=== PATIENT | female | born 1980 ===

== ENCOUNTER 2024-08-19 18:51 | Observation (INO) ==
[2024-08-19 19:49] LABS: BILIRUBIN,URINE NEGATIVE (NEGATIVE); GLUCOSE, URINE (UA) NEGATIVE (NEGATIVE); KETONES,URINE (UA) NEGATIVE (NEGATIVE); LEUKOCYTE ESTERASE, URINE NEGATIVE (NEGATIVE); NITRITE,URINE NEGATIVE (NEGATIVE); OCCULT BLOOD,URINE NEGATIVE (NEGATIVE); PROTEIN,URINE NEGATIVE (NEGATIVE); UROBILINOGEN,URINE 2 E.U./dL (NORMAL)
--- NOTE | 2024-08-19 19:58 | ED Physician Documentation ---
History of Present Illness Stated complaint Stated Complaint: LOWER BACK PX/ABD PX Chief complaint Chief Complaint: Back Pain History obtained from History obtained from: Patient Additonal information Additional information: This is a previous healthy 43-year-old woman who has superheavy periods. For the last few years she says, instead of using pads for her 7-day menstrual cycle, she actually use incontinence briefs because the bleeding is so heavy and has clots. She went to the clinic today for cough and cold and some backache and had a chest x-ray showing a viral pattern but also she was noted to be ye llow and was sent for labs which were notable for a hemoglobin of 4 with microcytic indices and referred here for further evaluation and treatment. Interestingly, despite the above she does not feel weak or dizzy, but she does have a lot of fatigue. Meds/Allgy Home Medications Ambulatory Orders Medication Instructions Recorded Confirmed No Known Home Medications 08/19/24 08/19/24 Allergies Allergies Allergy/AdvReac Type Severity Reaction Status Date / Time No Known Drug Allergies Allergy Verified 08/19/24 19:13 [facility] Surgical History Surgical History S/P tubal ligation Social History Social History Smoking Status: Never smoker Relationship: Do you feel safe in your home environment?: Yes Suffered physical, verbal, emotional, or financial abuse?: No Exam Constitutional normal general appearance This is a pale 43-year-old woman sitting in bed in no distress. I offered an science interpreter, but she preferred to have her daughter interpret. Respiratory breath sounds equal bilaterally and normal respiratory effort Cardiovascular normal heart rate noted, regular rhythm noted and no murmur Gastrointestinal abdomen soft to palpation and nontender to palpation Psychiatry oriented x3 Results Vitals Vitals: Vital Signs - 24 hr 08/19/24 19:04 08/19/24 19:46 Temperature 36.9 C Temperature Source Skin Pulse Rate 99 Respiratory Rate 16 17 Blood Pressure 139/59 H O2 Saturation 100 O2 Source Room air Room air Pain Intensity 6 4 Oxygen O2 Source Room air Labs Labs: Laboratory Tests 08/19/24 08/19/24 19:10 19:30 Iron 19 L TIBC 550 H % Saturation 3 L Transferrin 393 H Urine Color YELLOW Urine Clarity CLEAR Urine pH 8.0 H Ur Specific [place] 1.015 Urine Protein NEGATIVE Urine Glucose (UA) NEGATIVE Urine Ketones NEGATIVE Urine Occult Blood NEGATIVE Urine Nitrite NEGATIVE Urine Bilirubin NEGATIVE Urine Urobilinogen 2 H Ur Leukocyte Esterase NEGATIVE Ur Microscopic Review NOT INDICATED Urine Culture Comments NOT INDICATED Urine HCG, Qual NEGATIVE Crossmatch IS Only See Detail PD Medical Decision Making ED course ED course: This is a 43-year-old woman who presents from the clinic with severe microcytic anemia, likely due to heavy menses. In addition to the labs done in the clinic I have added on a iron studies crossmatched her for blood, and ordered a pelvic ultrasound. She has had a tubal ligation in the past as well as a and had her gallbladder out. Spoke with the hospitalist LORRAINE for admission at 7:55 PM given the likely prolonged length of stay. They plan to consult Satellite Dish Technician after the ultrasound. The patient and family are counseled as to the diagnosis and need for admission. This document was made in part using voice recognition software, while efforts a re made to proofread this document, sound alike an grammatical errors may occur. Discharge Plan Discharge Patient Disposition: ED Place in Observation Condition: Stable Clinical Impression: Profound anemia Qualifiers: Anemia type: iron deficiency Iron deficiency anemia type: chronic blood loss Qualified Code(s): D50.0 - Iron deficiency anemia secondary to blood loss (chronic) Heavy menstrual bleeding Qualifiers: Menorrhagia type: with regular cycle Qualified Code(s): N92.0 - Excessive and frequent menstruation with regular cycle Interventions: ED Admission Assessment Last Done: 08/19/24 20:36
[2024-08-19 19:59] LABS: CLARITY,URINE CLEAR (CLEAR); HCG UR QUAL NEGATIVE
[2024-08-19 20:00] LABS: % IRON SATURATION 3 % (20-50); IRON 19 ug/dL (50-212); TOTAL IRON BINDING CAPACITY 550 ug/dL (250-450); TRANSFERRIN 393 mg/dL (203-362)
--- NOTE | 2024-08-19 20:19 | HISTORY & PHYSICAL EXAMINATION ---
Chief Complaint Chief Complaint Chief Complaint: abdominal and lower back pain History of Present Illness History Obtained From Records Reviewed: [facility] visit today History obtained from: patient and family ( and daughter) History of Present Illness HPI Comment/Other: 43-year-old female who presents to the emergency department after having had labs drawn at urgent care. She was seen in our walk-in clinic today for cough that had been ongoing for several weeks. Provider noted that her skin was an odd color, suspected jaundice and got labs. Her CMP was within normal limits, however her hemoglobin was 4. She has very heavy menstrual periods her last 1 starting around the first of this month lasting about 7 to 8 days. For 3 days her bleeding is very heavy, so heavy that she has to wear incontinence pads, not menstrual pads. She states then she passes several big clots and the bleeding subsides after a total of about 7 days she does have some cramping and abdominal pain with her periods. She has not noticed any shortness of breath but he she has noted profound fatigue. She has been on the [place] for 7 to 8 years and lives with her daughter and her . 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 Previously she has been unemployed and has not had health insurance. She has a past surgical history of a tubal ligation. It is unknown if fibroids or uterine bleeding problems run in her family. She states that her mom at 73 years of age just had a hysterectomy in the last year. Her is her surrogate decision maker should she become unable to make her own medical decisions. Meds/Allgy Home Medications Ambulatory Orders Medication Instructions Recorded Confirmed No Known Home Medications 08/19/24 08/19/24 Allergies Allergies Allergy/AdvReac Type Severity Reaction Status Date / Time No Known Drug Allergies Allergy Verified 08/19/24 19:13 [facility] Surgical History Surgical History S/P tubal ligation Social History Social History Smoking Status: Never smoker Relationship: Do you feel safe in your home environment?: Yes Suffered physical, verbal, emotional, or financial abuse?: No POLST Patient has POLST: No Review of Systems Status of ROS: 10 or more systems reviewed and unremarkable except as noted in history and below Constitutional Reports: Fatigue; Denies: Weakness Ears, nose, mouth, and throat Denies: Ear pain, Nasal discharge or Throat pain Cardiovascular Denies: chest pain, palpitations or shortness of breath with exertion Respiratory Reports: Cough; Denies: Shortness of breath, Sputum production, Wheezing or Pleuritic pain Gastrointestinal Denies: Abdominal pain Genitourinary Reports: Painful menstruation, Vaginal bleeding and Change in menstrual flow (ongoing for at least one year. ) Integumentary/Breast Denies: Rash or Itching Neurological Denies: Headache Endocrine Reports: Fatigue Allergic/Immunologic Denies: Wheezing Prior Level of Functionality: independent adult Exam Constitutional normal general appearance slightly pale HENMT normocephalic Eyes PERRL and conjunctivae normal Neck/C-Spine visual inspection normal Lymph no lymphadenopathy noted Chest palpation of chest normal Respiratory breath sounds equal bilaterally and normal respiratory effort coughs with deep breathing Cardiovascular normal heart rate noted Gastrointestinal abdomen normal to inspection, abdomen soft to palpation and nontender to palpation Genitourinary no CVA tenderness Extremities normal to inspection Neurology filler room attendant II-XII intact, gait normal and GCS 15 Psychiatry mental status grossly normal, oriented x3 and cooperative Skin skin color normal Conclusion/Plan Problem List (1) Metrorrhagia: Plan: Ongoing for at least a year. No clear family history of fibroids. Patient has had fatigue, she is status post tubal ligation years ago. She denies any previous RAILROAD CAR CLEANER workup. Unknown when her last Pap smear was. We will obtain pelvic ultrasound to observe for fibroids and check the thickness of the uterine lining. Will strongly consider consultation with RAILROAD CAR CLEANER once this is obtained. Patient was discussed with Dr. Arriaga and decision was made to admit her to observation status due to the fact that she will need multiple units of blood transfusions and probably further workup and possible consultation for the etiology of the severe anemia. (2) Profound anemia: Plan: Hemoglobin of 4.3 today. Will transfuse with a goal hemoglobin of 7. Patient has 3 units of packed red blood cells ordered. I will check CBC in the AM. Iron studies show that she has low iron stores. She will be getting packed cells likely for most of the night. My plan is to also order Ferrlecit x 1 dose in the morning and consider discharging her to home on p.o. iron. She does not have a primary care provider. She has not had health insurance in recent years. She just started a new job and so likely can get her set up with primary care in the community and any additional care she might need. Qualifiers: Anemia type: iron deficiency Iron deficiency anemia type: chronic blood loss Qualified Code(s): D50.0 - Iron deficiency anemia secondary to blood loss (chronic) (3) Bronchitis: Plan: Has been coughing and feeling poorly for several weeks. She is not hypoxic. Her chest x-ray does show peribronchial cuffing suggestive of infectious or inflammatory bronchitis. I will start her on Mucinex. I will start her on steroids. Plan I have spent 80 minutes in the care of this patient today. This includes time [id number], review and ordering of diagnostic imaging and laboratory studie s and consultation with other providers.. Monitoring the patient's signs symptoms, evaluation of medication effectiveness and patient's response to treatment. Lab Results Lab results reviewed: Yes Diagnostic Imaging Results Diagnostic Imaging Results: positive Final report reviewed Core Measures Anticipated LOS I expect patient to be DC'd or transferred within 96 hours.: Yes Issues Hospital Issues and Management Plan: Profound anemia and metrorrhagia with comorbidity of bronchitis. She will be transfused the etiology of her anemia will be ascertained, and appropriate consultations will be made. DVT/VTE - Prophylaxis VTE/DVT Device ordered at admit?: Yes VTE/DVT Prophylaxis med ordered at admit?: Yes
[2024-08-19] MEDS: DEXAMETHASONE 10 MG/ML VIAL PO STA (20:25)
[2024-08-19] MEDS ORDERED: SODIUM CHLORIDE FLUSH 0.9% 10 ML SYRINGE IVP PRN (20:46)
[2024-08-19] MEDS ORDERED: ONDANSETRON ODT 4 MG TABLET TL PRN (20:46)
[2024-08-19] MEDS: guaiFENesin 600 MG TABLET PO SCH (22:06)
[2024-08-19] MEDS: ACETAMINOPHEN 325 MG TABLET PO ONE (22:06)
[2024-08-19] MEDS: diphenhydrAMINE 25 MG CAPSULE PO ONE (22:06)
[2024-08-19] MEDS: CHERRY SYRUP 10 ML UDC PO ONE (22:08)
[2024-08-19] MEDS: HEPARIN 5,000 UNIT/ML VIAL SUBQ SCH (22:12)
--- NOTE | 2024-08-19 22:50 | Ultrasound Report ---
PROCEDURE: US Pelvic w/TV+Doppler Ltd INDICATIONS: heavy anemia TECHNIQUE: Real-time scanning was performed of the pelvic organs, with image documentation. Additional endovagi nal scanning was necessary due to incomplete visualization of the adnexal and endometrial structures by transabdominal scanning. Doppler interrogation was performed of the ovaries bilaterally. COMPARISON: None. FINDINGS: Uterus: Uterus is anteverted and enlarged at 11.0 x 6.3 x 7.9 cm. The myometrium is heterogeneous. The endometrium measures 9 mm in combined thickness. Multiple uterine fibroids, with the 3 largest as follows: Right lateral subserosal fibroid measuring 3.7 x 3.8 x 3.7 cm. Right lateral inferior subserosal fibroid measuring 3.3 x 2.9 x 3.1 cm Midline anterior submucosal fibroid measures 2.1 x 1.5 x 1.8 cm. Ovaries: The right ovary measures 3.6 x 3.1 x 3.4 cm, with a calculated ovarian volume of 19.6 cc. The left ovary measures 3.0 x 2.2 x 2.9 cm, with a calculated ovarian volume of 9.6 cc. Simple right ovarian cyst measures up to 2.6 cm. Appropriate blood flow to the ovaries with Doppler interrogation. Less than 12 follicles can be seen in each ovary. No adnexal masses are seen. No cystic lesions m easuring greater than 3 cm. Other: No pathologic free abdominal or pelvic fluid. IMPRESSION: Enlarged fibroid uterus. A 2.1 cm fibroid has a submucosal component. Reviewed by: Dennis العلي MD on 08/19/2024 10:48 PM PST Approved by: Dennis العلي MD on 08/19/2024 10:48 PM PST Station ID: [id number]
[2024-08-20] MEDS: SODIUM CHLORIDE FLUSH 0.9% 10 ML SYRINGE IVP SCH (02:21)
--- NOTE | 2024-08-20 02:46 | PROVIDER PROGRESS NOTE ---
Reinforced Ironworker Note Reinforced Ironworker Note Reinforced Ironworker Note: per nurse "Pt admitted for Severe Anemia. Heparin was ordered on admission. Pt is ambulating to the Bathroom to void and has SCD's ordered, currently they are off as they made pt feel hot. Should we be giving Heparin to a pt with a critically low Hgb? Pt also has a frequent cough, can we get cough medication ordered? Thank You" heparin stopped
[2024-08-20 05:35] LABS: BASOPHILS % (AUTO) 0.8 %; EOSINOPHILS % (AUTO) 0.2 %; HCT - HEMATOCRIT 24.3 % (37.0-47.0); LYMPHOCYTES # (AUTO) 0.6 10^3/uL (1.5-3.5); LYMPHOCYTES % (AUTO) 12.4 %; MEAN CORPUSCULAR HEMOGLOBIN 19.4 pg (27.0-31.0); MEAN CORPUSCULAR HGB CONC 28.4 g/dL (32.0-36.0); MEAN CORPUSCULAR VOLUME 68.3 fL (81.0-99.0); MEAN PLATELET VOLUME 8.9 fL (7.9-10.8); MONOCYTES # (AUTO) 0.1 10^3/uL (0.0-1.0); MONOCYTES % (AUTO) 1.5 %; NEUTROPHILS # (AUTO) 4.3 10^3/uL (1.5-6.6); NRBC ABSOLUTE COUNT (AUTO) 0.03 x10^3/uL; NUCLEATED RED BLOOD CELLS AUTO 0.6 /100WBC; PLT - PLATELET COUNT 339 10^3/uL (130-450); RED BLOOD COUNT 3.56 10^6/uL (4.20-5.40); RED CELL DISTRIBUTION WIDTH 28.8 % (12.0-15.0); WHITE BLOOD COUNT 5.2 x10^3/uL (4.8-10.8)
[2024-08-20 05:40] LABS: HGB - HEMOGLOBIN 6.9 g/dL (12.0-16.0); SLIDE REVIEW? Indicated
[2024-08-20 05:47] LABS: CALCIUM 8.9 mg/dL (8.5-10.3); CREATININE 0.4 mg/dL (0.6-1.3); POTASSIUM 3.6 mmol/L (3.5-4.5)
[2024-08-20 06:28] LABS: PLATELET ESTIMATE, MANUAL NORMAL (130-450,000) (NORMAL); PLATELET MORPHOLOGY NORMAL APPEARANCE (NORMAL)
[2024-08-20 08:24] VITALS: O2SAT 96
--- NOTE | 2024-08-20 13:38 | PHARMACY PROGRESS NOTE ---
Best Possible Medication History Admit Date and Time: 08/19/242014 Processed by: Pharmacy Medications reviewed in ED?: No Medication History completed: Yes Patient Interview: Completed Secondary Source(s): Insurance records [facility] Statement: daycare director interview, pt states takes no home medications. As the person ultimately responsible for medication therapy, providers are able to order a medication from an existing home medication list in [facility] via the "Reconcile Routine" prior to Confirmation of that medication by patient support partner. Such practice is discouraged except when the physician, in their clinical judgment, deems that a medical need exists for a medication without regard to previous use.
--- NOTE | 2024-08-20 14:59 | Discharge Summary ---
"Discharge Summary Admit Date: 08/19/24 Discharge Date: 08/20/24 Discharging Provider: Margie Akers PA-C Primary Care Provider: none, patient finding one Code Status: Attempt Resuscitation DIAGNOSES Discharge Diagnoses with Status of Each Condition: 1. Profound anemia, transfuse to hemoglobin of 8. 2. metrorrhagia, ongoing with fibroids seen on pelvic ultrasound. Referred to [facility] with upcoming appointment within the week 3. Acute bronchitis treated with steroids, improved HPI History of Present Illness: 43-year-old female who presents to the emergency department after having had labs drawn at urgent care. She was seen in our walk-in clinic today for cough that had been ongoing for several weeks. Provider noted that her skin was an odd color, suspected jaundice and got labs. Her CMP was within normal limits, however her hemoglobin was 4. She has very heavy menstrual periods her last 1 starting around the first of this month lasting about 7 to 8 days. For 3 days her bleeding is very heavy, so heavy that she has to wear incontinence pads, not menstrual pads. She states then she passes several big clots and the bleeding subsides after a total of about 7 days she does have some cramping and abdominal pain with her periods. She has not noticed any shortness of breath but he she has noted profound fatigue. She has been on the [place] for 7 to 8 years and lives with her daughter and her . 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 Previously she has been unemployed and has not had health insurance. She has a past surgical history of a tubal ligation. It is unknown if fibroids or uterine bleeding problems run in her family. She states that her mom at 73 years of age just had a hysterectomy in the last year. Her is her surrogate decision maker should she become unable to make her own medical decisions. CONSULTS | PROCEDURES Procedures: Chest x-ray: Peribronchial cuffing suggestive of infectious or inflammatory bronchitis. No definite focal infiltrate. No pleural effusion or pneumothorax. Pelvic/transvaginal ultrasound: Enlarged fibroid uterus. A 2.1 cm fibroid has a submucosal component. HOSPITAL COURSE Hospital Course: Extremely pleasant 43-year-old female presents to the emergency department via the walk-in clinic after having labs drawn showing a hemoglobin of 4. This stimulus for the lab was an appearance of jaundice. Her CMP was within normal limits however her hemoglobin was very low. She has had very heavy menstrual periods for about the last year. Please see HPI for further details regarding her periods. She was transfused 3 units of packed red blood cells to a hemoglobin of 8.3 from a hemoglobin of 4.3. Additionally she was given 1 dose of IV Ferrlecit. Her iron stores were low. She was also instructed to start vitamins with iron and folate. Prescription for these were sent in. I consulted Dr. Samaria Brown of [facility] to assist me with treatment of her menorrhagia with uterine fibroids. Dr. Brown recommended that I prescribe the patient 1300 mg of TXA 3 times daily for up to 5 days during her heaviest menstrual bleeding. Additionally Dr. Casas assisted in obtaining near follow-up with one of her partners for further consultation. Patient was given written and verbal instruction regarding her health conditions. All of hers and her family's questions were answered to their satisfaction. ALLERGIES Allergies Allergy/AdvReac Type Severity Reaction Status Date / Time No Known Drug Allergies Allergy Verified 08/19/24 19:13 MEDICATIONS Ambulatory Orders Medication Instructions Recorded Confirmed guaifenesin 600 mg tablet, 1,200 mg (2 x 600 mg) PO BID #20 08/20/24 extended release 12 hr (Mucinex) tabs prednisone 20 mg tablet 40 mg (2 x 20 mg) PO DAILY 3 days 08/20/24 #6 tabs vits,calcium 21-iron fum See Rx Instructions .Route 08/20/24 14 mg iron-folic acid 400 mcg .COMPLEX #60 tabs tablet ( Complete) tranexamic acid 650 mg tablet 1,300 mg (2 x 650 mg) PO TID #60 08/20/24 tabs PHYSICAL EXAM AT DISCHARGE General Appearance: positive No acute distress and Alert Eyes Bilateral: positive Normal inspection and Conjunctivae nml ENT: positive ENT inspection nml Neck: positive Nml inspection Respiratory: positive No respiratory distress and Breath sounds nml Cardiovascular: positive Regular rate & rhythm Abdomen: positive Non-tender and No distention Skin: positive Color nml Extremities: positive Non-tender and No pedal edema Neurologic/Psychiatric: positive Oriented x3 LABS 08/20/24 13:29 08/20/24 05:07 FOLLOW UP Follow Up: Dr. Mckinney, see appointment date and time above. She was given a list of PCPs in the community encouraged to make an appointment. TIME SPENT Time Spent in Discharge (Minutes): 50 Discharge Plan Discharge Patient Disposition: 01 Home, Self Care Condition: Stable Prescriptions: New guaifenesin [Mucinex] 600 mg Tablet Extended Release 12hr 1,200 mg PO BID Qty: 20 0RF prednisone 20 mg tablet 40 mg PO DAILY 3 Days Qty: 6 0RF tranexamic acid 650 mg tablet 1,300 mg PO TID Qty: 60 0RF Rx Instructions: Take 2 tablets three times a day for up to 5 days when your menstrual bleeding is very heavy. Do not exceed 5 days of use. Complete 14 mg iron- 400 mcg tablet See Rx Instructions .ROUTE .COMPLEX Qty: 60 0RF Rx Instructions: one tab daily with food. Interventions: Belongings Inventory Last Done: 08/19/24 23:25 Health Concerns: You are a 43-year-old female who went to urgent care after having a cough for several weeks. When you went to urgent care they thought that your skin tone was a bit yellow and sent labs. Those labs showed that you were very very anemic. We believe this anemia is due to your very very heavy menstrual cycles. Since you have been in the hospital you have received 3 units of packed red blood cells. Your hemoglobin number has improved from 4 to 8. You will still feel tired but this will help somewhat. Additionally I have given you IV iron before leaving the hospital. This will give you building blocks for red blood cells. It will help your body recover from the anemia. I am also going to write you a prescription for a vitamin with iron. This medication will also help give you the building blocks you need to make red blood cells. Take this medication with food. It can be a little bit constipating so make sure you are eating plenty of fresh fruits and vegetables and drinking plenty of water. Your stools may also turn black with this medicine because it has iron in it. When your menstrual bleeding is heavy I am writing a prescription for medication called TXA. This medication should be taken 2 pills 3 times a day for up to 5 days on the days that you are bleeding most heavily. It will help slow the bleeding down. You had a pelvic ultrasound which showed that you have fibroids in your uterus. These fibroids are what is causing your menstrual cycles to be so heavy. Ultimately, you need to see an [facility] doctor who can help sort these problems out. You may eventually need a surgery called a hysterectomy, but is up to them and you to work out what is best for you. I have an appointment for you with Dr. Mckinney on August 24 at 12:45 PM. He is a very nice doctor, and his office is right next to the hospital in the building next to the [facility]. It is always helpful to the community did donate blood. The name of the organization that gives hospitals blood to help patients like you is called [employer]. You can look them up on the Internet and they do have blood drives periodically. With regards to medical bills; medical bills can be expensive and difficult to understand. I would recommend that when you get a bill you call your insurance company and make sure that is what they think you should go. You can then work it out with the hospital from there. I know it is very scary to face these issues and I wish I had a good solution for you. Care Plan Goals: See Dr. Mckinney to help resolve your fibroids. Take vitamins with iron to help replenish your red blood cells Use TXA medication when you are bleeding heavily For your bronchitis I want you to finish several days of steroids to help relieve the inflammation in your lungs. I also want you to take Mucinex to help thin out your secretions Print Language: Bruneian/Castilian Patient Instructions: Anemia, ED Bleeding Menstrual Heavy Follow-up Care: Davie Mckinney MD [Provider Admit Priv/Credential] -"
[2024-08-20] MEDS: FERRIC GLUCONATE 125 MG in SODIUM CHLORIDE 0.9% 100ML 100 ML IV ONE (15:51)
[2024-08-20 16:48] VITALS: BP 120/67; TEMP 98.4
== END 2024-08-20 17:44 | disposition home or self-care (01) ==
LOC: MS2 18:51 → ED 18:51 → MS2 20:33
PROVIDERS: ADMIT Physician Assistant Medical; ATTEND Physician Assistant Medical
DX: D25.0 Submucous leiomyoma of uterus; D25.2 Subserosal leiomyoma of uterus; J20.9 Acute bronchitis, unspecified; R17 Unspecified jaundice; N92.1 Excessive and frequent menstruation with irregular cycle; D50.0 Iron deficiency anemia secondary to blood loss (chronic)